=== PATIENT | female | born 1945 | race Caucasian/White ===

== ENCOUNTER 2022-01-25 19:42 | Emergency (ER) | payer SELFPAY ==
[~2022-01-25] VITALS: Ht 160 cm; Wt 51.7 kg
[2022-01-25 19:45] VITALS: BP 149/75
--- NOTE | 2022-01-25 19:47 | PHYS DOC ---
Past History Past Medical History: Alcoholism General Adult EDM: Chief Complaint: ALCOHOL INTOXICATION HPI: HPI: ".. I don't why they made me come... I think the night lady called the ambulance since I was drunk and stumbling around... I drank on pint of vodka.. . but that is something I do almost every day... but maybe not so much at once... I dont hurt anywhere .. I have not hurt anything.. they just made me come..,.I don't want any thing done.. I got plenty of money for a cab...just call a cab.. and I will go back to my room...".. " I am in the independent living area at [facility]..." Patient is a 76 year old female who presents with above hx and complaints of alcohol intoxication. Pt. transported to ED for evaluation of her intoxication per [facility]. Pt. refusing labs or any evaluation. Will allow us to observe her for a while, but refuses any evaluation. Patient denies any recent travel. Patient denies any specific ill contacts. Patient denies any significant medical problems. Patient does admit to drinking daily approximately 1 pint of vodka a day. Pt. currently demanding discharge. Pt. ambulatory without problems . Pt.,up at nursing desk constantly requesting a cab. Declining to stay in room. Will wear her mask. But refuses to stay in room. Review of Systems: Review of Systems: Constitutional: Denies fever or chills Eyes: Denies change in visual acuity HENT: Denies nasal congestion or sore throat Respiratory: Denies cough or shortness of breath Cardiovascular: Denies chest pain or edema GI: Denies abdominal pain, nausea, vomiting, bloody stools or diarrhea : Denies dysuria Musculoskeletal: Denies back pain or joint pain Integument: Denies rash Neurologic: Denies headache, focal weakness or sensory changes Endocrine: Denies polyuria or polydipsia Lymphatic: Denies swollen glands Psychiatric: Denies depression or anxiety Family History: Family History: Noncontributory to presentation Current Medications: Current Meds: See nursing for home meds Allergies: Allergies: Allergic to sulfa Physical Exam: PE: Constitutional: no acute distress, intoxicated in appearance. [] HENT: Normocephalic, atraumatic, bilateral external ears normal, oropharynx moist, no oral exudates, nose normal. [] Eyes: PERRLA, EOMI, conjunctiva mild injection, no discharge. [] Neck: Normal range of motion, no tenderness, supple, no stridor. [] Cardiovascular:Heart rate regular rhythm, no murmur [] Lungs & Thorax: Bilateral breath sounds clear to auscultation [] Abdomen: Bowel sounds normal, soft, no tenderness, no masses, no pulsatile masses. [] Skin: Warm, dry, no erythema, no rash. [] Back: No tenderness, no CVA tenderness. [] Extremities: No tenderness, no cyanosis, no clubbing, ROM intact, no edema. [] Neurologic: Alert and oriented X 3, moves all extremities on request, does have distal sensory, no gross focal deficits noted. [] Mild dis coordination. DTRs +2 patella and brachial. 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 No drift. Psychologic: Affect normal, judgement normal, mood normal. [] EKG: EKG: [] Radiology/Procedures: Radiology/Procedures: [] Heart Score: C/O Chest Pain: N/A Risk Factors: Risk Factors: DM, Current or recent (<one month) smoker, HTN, HLP, family history of CAD, obesity. Risk Scores: Score 0 - 3: 2.5% MACE over next 6 weeks - Discharge Home Score 4 - 6: 20.3% MACE over next 6 weeks - Admit for Clinical Observation Score 7 - 10: 72.7% MACE over next 6 weeks - Early Invasive Strategies Course & Med Decision Making: Course & Med Decision Making Pertinent Labs and Imaging studies reviewed. (See chart for details) Pt. encouraged to reduce her alcohol intake. Patient return if any concerns. Follow-up primary care. Impression: 1. Alcohol intoxication [] Dragon Disclaimer: Dragon Disclaimer: This electronic medical record was generated, in whole or in part, using a voice recognition dictation system. Departure Departure: Referrals: PCP,NO (PCP) Linda Disclaimer This chart was dictated in whole or in part using Voice Recognition software in a busy, high-work load, and often noisy Emergency Department environment. It may contain unintended and wholly unrecognized errors or omissions. Dragon Disclaimer This chart was dictated in whole or in part using Voice Recognition software in a busy, high-work load, and often noisy Emergency Department environment. It may contain unintended and wholly unrecognized errors or omissions. Dragon Disclaimer This chart was dictated in whole or in part using Voice Recognition software in a busy, high-work load, and often noisy Emergency Department environment. It may contain unintended and wholly unrecognized errors or omissions. LORETTA KIMBALL MD Jan 25, 2022 19:47
== END 2022-01-25 22:35 | disposition home or self-care (01) ==
LOC: ER 20:42
DX: F10.229 Alcohol dependence with intoxication, unspecified (principal); Y90.9 Presence of alcohol in blood, level not specified; Z88.2 Allergy status to sulfonamides
CPT/HCPCS: 99283

== ENCOUNTER 2022-01-27 10:53 | Observation (INO) | payer MEDICARE ==
[~2022-01-27] VITALS: Ht 152.4 cm; Wt 52.7 kg
--- NOTE | 2022-01-27 11:04 | PHYS DOC ---
Past History Past Medical History: Alcoholism Past Surgical History: No Surgical History Alcohol Use: Heavy Adult General Chief Complaint Chief Complaint: NAUSEA/VOMITING/DIARRHEA HPI HPI Patient is a 76-year-old female, with a past medical history significant for alcoholism and alcohol withdrawals who presents with nausea and vomiting over the last day or so. States she usually drinks anywhere from 1 to 2 pints of vodka a day at least and has been doing so for quite a long time. States she had not had a drink in 2 days. States she feels shaky and her hands have been shaking over the last couple of days, and has had some nausea and vomiting. Denies any recent trauma, travels, illnesses, fevers, chest pain, shortness of breath, abdominal pain, dysuria, hematuria, blood in the stool or diarrhea. Denies any known ill contacts. States she has had her Covid vaccinations. Denies any other drug use. Review of Systems Review of Systems Review of systems otherwise unremarkable except noted in HPI Allergies Allergies Allergies Coded Allergies Type Severity Reaction Last Updated Verified Sulfa (Sulfonamide Antibiotics) Allergy Unknown 01/25/22 Yes Physical Exam Physical Exam Constitutional: Well developed, well nourished, no acute distress, appears as she does not feel well HENT: Normocephalic, atraumatic, bilateral external ears normal, oropharynx moist, no oral exudates, nose normal. [] Eyes: PERRLA, EOMI, conjunctiva normal, no discharge. [] Neck: Normal range of motion, no tenderness, supple, no stridor. [] Cardiovascular:Heart rate regular rhythm, no murmur [] Lungs & Thorax: Bilateral breath sounds clear to auscultation [] Abdomen: soft, no tenderness, no masses, no pulsatile masses. [] Skin: Warm, dry, no erythema, no rash. [] Back: No tenderness, no CVA tenderness. [] Extremities: No tenderness, no cyanosis, no clubbing, ROM intact, no edema. [] Neurologic: Alert and oriented X 3, normal motor function, normal sensory function, able to sit, stand and walk, no focal deficits noted. Has some b ilateral upper extremity tremor Psychologic: Affect normal, judgement normal, mood normal. [] Current Patient Data Vital Signs Vital Signs Date Time Temp Pulse Resp B/P (MAP) Pulse Ox O2 Delivery O2 Flow Rate FiO2 01/27/22 10:55 98.0 96 16 133/88 (103) 98 Room Air EKG EKG [] Radiology/Procedures Radiology/Procedures [] Heart Score C/O Chest Pain: No Risk Factors: Risk Factors: DM, Current or recent (<one month) smoker, HTN, HLP, family history of CAD, obesity. Risk Scores: Risk Factors: DM, Current or recent (<one month) smoker, HTN, HLP, family his tory of CAD, obesity. Course & Med Decision Making Course & Med Decision Making Patient is a 76-year-old female presents with nausea and vomiting and history of alcoholism Vital signs notable for hypertension. Physical exam noted above. Placed on the monitor with IV access established and IV fluid began. Given Versed for alcohol withdrawal Laboratory analysis notable for hypomagnesemia. Replaced magnesium. Discussed all findings with patient and recommended admission for continued evaluation and treatment of alcohol withdrawals, and need for nutrition management as well as fluid management. Patient grateful, verbalized understanding and agreed with plan of admission Dragon Disclaimer Dragon Disclaimer This electronic medical record was generated, in whole or in part, using a voice recognition dictation system. Departure Departure: Impression: Primary Impression: Alcohol withdrawal Additional Impressions: Hypomagnesemia Malnutrition Disposition: ADMITTED INPATIENT Admitting Physician: Bala Leslie Condition: STABLE Referrals: PCP,NO (PCP) Problem Qualifiers JUSTIN BOOTHE MD Jan 27, 2022 11:04
[2022-01-27] MEDS ORDERED: MIDAZOLAM HCL PF 5 MG/5 ML VIAL. IV ONE (11:15)
[2022-01-27] MEDS ORDERED: ONDANSETRON PF 4 MG/2 ML VIAL. IVP ONE (11:15)
[2022-01-27] MEDS ORDERED: FOLIC ACID 1 MG TABLET PO ONE (11:15)
[2022-01-27] MEDS ORDERED: THIAMINE 100 MG TABLET. PO ONE (11:15)
[2022-01-27] MEDS ORDERED: CYANOCOBALAMIN (VITAMIN B-12) 100 MCG TABLET PO ONE (11:30)
[2022-01-27 11:44] LABS: BASO % 1 % (0-3); EOS % 0 % (0-3); HEMATOCRIT 38.1 % (36.0-47.0); LYMPH # 0.7 x10^3/uL (1.0-4.8); LYMPH % 11 % (24-48); MEAN CORPUSCULAR HEMOGLOBIN 34 pg (25-35); MEAN CORPUSCULAR HGB CONC 34 g/dL (31-37); MEAN CORPUSCULAR VOLUME 101 fL (79-100); MONO # 0.6 x10^3/uL (0.0-1.1); MONO % 8 % (0-9); NEUT # 5.5 x10^3uL (1.8-7.7); NEUT % 80 % (31-73); PLATELET COUNT 155 x10^3/uL (140-400); RED BLOOD COUNT 3.78 x10^6/uL (3.50-5.40); RED CELL DISTRIBUTION WIDTH 15.9 % (11.5-14.5); WHITE BLOOD COUNT 6.9 x10^3/uL (4.0-11.0)
[2022-01-27 11:54] LABS: CALCIUM 8.9 mg/dL (8.5-10.1); CREATININE 0.7 mg/dL (0.6-1.0); GFR 81.1; POTASSIUM 4.1 mmol/L (3.5-5.1)
[2022-01-27 11:57] LABS: ALBUMIN 3.6 g/dL (3.4-5.0); ALBUMIN/GLOBULIN RATIO 1.1 (1.0-1.7); MAGNESIUM 1.4 mg/dL (1.8-2.4); TOTAL BILIRUBIN 1.2 mg/dL (0.2-1.0); TOTAL PROTEIN 6.9 g/dL (6.4-8.2)
[2022-01-27] MEDS ORDERED: MAGNESIUM SULFATE 2GM 50 ML IV ONE (12:45)
[2022-01-27] MEDS ORDERED: cloNIDine HCL 0.1 MG TABLET PO PRN (12:45)
[2022-01-27 14:00] VITALS: BP 157/93
--- NOTE | 2022-01-27 19:02 | EKG ---
[address] [address] Test Date: 2022-01-27 Test Time: 11:30:49 Pat Name: CARINA HEAD Department: Room: 125 A Gender: F Card Reader: : 1945 Requested By: JUSTIN BOOTHE Order Number: [id number] Reading MD: Harry Chester Measurements Intervals [place] Rate: 85 P: 90 VA: 126 QRS: 13 QRSD: 76 T: 38 QT: 362 QTc: 436 Interpretive Statements SINUS RHYTHM NORMAL ECG RI6.02 No previous ECG available for comparison Electronically Signed On 01-28-2022 9:06:29 CDT by Harry Chester
[2022-01-27 22:20] LABS: BACTERIA,URINE MOD /HPF (0-FEW); CLARITY,URINE CLEAR; COLOR,URINE YELLOW; GLUCOSE,URINE NEG (NEG); NITRITE,URINE NEG (NEG); SQUAMOUS EPITHELIAL CELL,UR FEW /LPF; WBC,URINE 20-40 /HPF (0-4)
[2022-01-28 04:53] VITALS: BP 167/92
[2022-01-28 05:50] LABS: BASO % 1 % (0-3); EOS # 0.1 x10^3/uL (0.0-0.7); EOS % 2 % (0-3); HEMATOCRIT 37.3 % (36.0-47.0); HEMOGLOBIN 12.7 g/dL (12.0-15.5); LYMPH # 0.7 x10^3/uL (1.0-4.8); LYMPH % 11 % (24-48); MEAN CORPUSCULAR HEMOGLOBIN 35 pg (25-35); MEAN CORPUSCULAR HGB CONC 34 g/dL (31-37); MEAN CORPUSCULAR VOLUME 102 fL (79-100); MONO # 0.8 x10^3/uL (0.0-1.1); MONO % 11 % (0-9); NEUT # 5.4 x10^3uL (1.8-7.7); NEUT % 76 % (31-73); PLATELET COUNT 137 x10^3/uL (140-400); RED BLOOD COUNT 3.66 x10^6/uL (3.50-5.40); RED CELL DISTRIBUTION WIDTH 16.3 % (11.5-14.5); WHITE BLOOD COUNT 7.1 x10^3/uL (4.0-11.0)
[2022-01-28 06:05] LABS: CALCIUM 9.1 mg/dL (8.5-10.1); CREATININE 0.9 mg/dL (0.6-1.0); GFR 60.7; POTASSIUM 3.1 mmol/L (3.5-5.1)
[2022-01-28 07:00] VITALS: BP 167/172
[2022-01-28] MEDS ORDERED: POTASSIUM CHLORIDE 20 MEQ TABLET.ER. PO ONE (08:45)
--- NOTE | 2022-01-28 09:36 | HP ---
DATE OF SERVICE: 01/28/2022 ADMIT DATE: 01/27/2022 ATTENDING PHYSICIAN: Dr. Leslie CHIEF COMPLAINT: Nausea. HISTORY OF PRESENT ILLNESS: The patient is a 76-year-old female who drinks a fifth of vodka daily. She has depression ever since her . She has been living at assisted living at [facility]. She has a social security payment as well as a long-term care insurance, which is paying her rent. She is not having overt withdrawal. She is a bit nauseated. She was admitted for further observation. The workup in the ED was fairly unremarkable. PAST MEDICAL HISTORY: Significant for chronic alcoholism. She is a nonsmoker. ALLERGIES: She has allergies to SULFA drugs. No local physician. No prescription meds. SOCIAL HISTORY: She is a nonsmoker. Alcohol use, she drinks Yo Vodka up to 2 pints a day, which equals the quart. FAMILY HISTORY: Noncontributory. REVIEW OF SYSTEMS: Significant for the alcohol use. She has underlying depression. She does not see a local physician. All other systems reviewed and turned to be negative. There is no hematemesis. PHYSICAL EXAMINATION: GENERAL: When I saw her, this is a pleasant sober female. VITAL SIGNS: Initial vital signs showed a blood pressure 157/90, pulse is 70 and regular. She is afebrile. Oxygen saturation 96% on room air. HEENT: Head is without trauma. Pupils are reactive. Sclerae nonicteric. Oropharynx clear. NECK: Supple, no bruits. LUNGS: Shallow respirations. CARDIOVASCULAR: Regular heart tones. ABDOMEN: Soft. No guarding. EXTREMITIES: Without edema. NEUROLOGIC: Focally intact. She is sober. PERTINENT LABORATORY STUDIES: The admission hemoglobin was 13.0 g/dL, MCV is 102. White count is normal. Electrolytes: Sodium 138 mEq, potassium 4.1. Nonfasting blood sugar 120. Transaminases were normal. Bilirubin is only 1.2. ASSESSMENT: 1. This 76-year-old female has chronic alcoholism. 2. Alcoholic gastritis. 3. Possible early withdrawal symptoms. PLAN: 1. Observation status. 2. Diet as tolerated. 3. P.r.n. Ativan. TEETEE DR: Varsha TID: [id number]
--- NOTE | 2022-01-28 11:51 | DS ---
DATE OF DISCHARGE: 01/28/2022 ATTENDING PHYSICIAN: Dr. Leslie. FINAL DISCHARGE DIAGNOSES: 1. Alcoholic gastritis. 2. Chronic alcoholism. 3. Underlying depression with anxiety. 4. Essential hypertension. HISTORY AND PHYSICAL: The patient aged 76 has been depressed for many years. She is . She drinks alcohol to excess up to a quart of vodka daily. She stopped drinking 2 days ago. She came into the ED. She was nauseated. She had maybe early signs of withdrawal. She was admitted for observation. PHYSICAL EXAMINATION: Please see the dictated note. PERTINENT LABORATORY AND X-RAY STUDIES: Admission hemoglobin was 13.0 g/dL, white count 6900. Chemistry panel was unremarkable. Bilirubin is 1.2 mg/dL and her transaminases were normal. COURSE IN HOSPITAL: The patient was admitted. She had p.r.n. Ativan ordered. Diet was advanced. She did well. She had no further withdrawal symptoms. By the time I saw her the next morning, she was quite sober and alert neurologically. At this time, she is ready for discharge. We got a ride for her to return to [facility]. Strong encouragement to avoid further alcohol use, whether or not she will quit drinking remains to be seen. She is also in the process of finding a primary care physician through her insurance. RADHA/JOHN DR: RADHA/ryann TID: [id number]
[2022-02-01] MEDS ORDERED: MULTIVITAMIN with MINERAL TABLET. PO SCH (09:00)
== END 2022-01-28 11:00 | disposition home or self-care (01) ==
LOC: ER 10:53 → ER HOLD 12:45 → INTOOBSV 12:45 → 1 SOUTH 14:33
PROVIDERS: ADMIT Hospitalist; ATTEND Hospitalist
DX: K29.20 Alcoholic gastritis without bleeding (principal); Z20.822 Contact with and (suspected) exposure to COVID-19; F10.239 Alcohol dependence with withdrawal, unspecified; I10 Essential (primary) hypertension; E46 Unspecified protein-calorie malnutrition; E83.42 Hypomagnesemia; F41.8 Other specified anxiety disorders; Z63.4 Disappearance and death of family member; Z79.899 Other long term (current) drug therapy; Z98.890 Other specified postprocedural states
CPT/HCPCS: 36415; 80048; 80053; 81001; 82947; 83690; 83735; 84443; 84484; 85025; 87086; 93005; 96365; 96366; 96375; 99284; G0378; J2060; J2250; J2405; J3475; U0003; G0379; 99285-25